=== PATIENT | female | born 1975 | race Caucasian/White ===

== ENCOUNTER 2025-06-13 05:31 | Emergency (ER) | payer MEDICAID, SELFPAY ==
[2025-06-13 05:31] VITALS: BMI 34.4
[2025-06-13 05:40] VITALS: BP 131/90; PULSE 92; RESP 17; TEMP 36.7; O2SAT 97
--- NOTE | 2025-06-13 06:44 | EDNOTE_ITS ---
<Statement entered by Nolvia Kan MD - 06/13/25 09:34> As co-signing physician, I was present and available for consult prn. I concur with the plan and care as documented by the midlevel provider. ED Ear RME/HPI General Chief complaint: Ear Stated complaint: SOMETHING IN RIGHT EAR Time Seen by Provider: 06/13/25 06:17 Arrival date/time: 06/13/25 05:31 49-year-old female presents to the emergency department today for complaints of foreign body in right ear patient believes she has a bug in her right ear since last night Limitations: no limitations Related Data Home Medications ?Medication ?Instructions ?Recorded ?Confirmed albuterol sulfate 90 mcg/actuation 2 puff inhalation Q 4H PRN Wheezing 05/22/21 05/24/21 aerosol inhaler atorvastatin 40 mg tablet 40 mg PO HS 05/22/21 1 buspirone 15 mg tablet 7.5 mg PO BID 05/22/2105/24 clopidogrel 75 mg tablet 75 mg PO HS 05/22/21 1 gabapentin 300 mg capsule 600 mg PO QPM 05/22/2105/24 metoprolol succinate 50 mg 50 mg PO HS 05/22/21 tablet,extended release 24 hr sertraline 50 mg tablet 50 mg PO HS 05/22/21 1 aspirin 81 mg tablet 81 mg PO HS 05/23/21 1 Previous Rx's ?Medication ?Instructions ?Recorded acetaminophen 500 mg capsule 500 mg PO QID PRN fever o r pain 02/28/23 #30 caps Allergies Allergy/AdvReac Type Severity Reaction Status Date / Time codeine AdvReac Intermediate HEADACHE Verified 05/24/21 15:13 Review of Systems Review of Systems Systems Reviewed: All systems reviewed, normal except as documented Constitutional Constitutional: Reports system reviewed and no additional complaints, except as documented, Denies fever(s) and Denies headache(s) Eyes Eyes: Reports system reviewed and no additional complaints, except as documented and Denies blurry vision ENT Ears, Nose, Mouth, and Throat: Reports system reviewed and no additional comp laints, except as documented, Denies headache(s), Denies nasal congestion, Denies nasal discharge and Reports other (Foreign body right ear) Cardiovascular Cardiovascular: Reports system reviewed and no additional complaints, except as documented, Denies chest pain and Denies dyspnea Respiratory Respiratory: Reports system reviewed and no additional complaints, except as documented, Denies chest congestion, Denies cough and Denies dyspnea Gastrointestinal Gastrointestinal: Reports system reviewed and no additional complaints, except as documented and Denies abdominal pain Integumentary/Breasts Skin/Breast: Reports system reviewed and no additional complaints, except as documented and Denies rash Neurologic Neurologic: Reports system reviewed and no additional complaints, except as documented, Reports as per HPI and Denies headache(s) Past Medical History Past Medical History NEUROLOGIC: Negative Neurological Disorders CARDIAC: Positive Cardiac Disorders, Myocardial Infarction, Cardiac Arrhythmia, Angina, Atherosclerotic Heart Disease, Hypercholesterolemia, Congestive Heart Failure, Cardiomyopathy and Hypertension; Negative Atrial Fibrillation or Congenital Heart Disease RESPIRATORY: Positive Asthma; Negative Chronic Obstructive Pulmonary Disease (COPD) GASTROINTESTINAL: Positive Gastrointestinal Disorders and Obesity GENITOURINARY: Negative Genitourinary Disorders or Renal Disease MUSCULOSKELETAL: Negative Musculoskeletal Disorders ENDOCRINE: Positive Endocrine Disorders and Diabetes Mellitus Type 2 (DIET CONTROLLED); Negative Diabetes Mellitus Type 1 HEMATOLOGIC: Negative Blood Disorders or Sickle Cell Disease PSYCHO/SOCIAL: Positive Depression and Anxiety OTHER HISTORY: Positive Cancer and Cervical Cancer; Negative Blood Transfusions Family History FAMILY HISTORY: Positive Family Cancer Surgical History SURGICAL: Positive Cardiac Surgery, Coronary Artery Bypass Graft, Valve Replacement and Hysterectomy; Negative Endocrine Surgery, Ear Surgery or Abdominal Surgery Social History SMOKING STATUS: Current every day smoker SUBSTANCE USE: former substance user (Methamphetamine abuse, clean since 1997) and marijuana (Current user) ED Exam General Limitations: Present no limitations General appearance: Present alert and in no apparent distress Head Head exam: Present atraumatic Eye Eye exam: Present normal appearance, PERRL and EOMI ENT ENT exam: Present mucous membranes moist Expanded ENT Exam Nasal speculum exam: Right: foreign body Neck Neck exam: Present normal inspection, full ROM and trachea midline Chest Chest inspection: Present normal inspection and symmetric chest wall rise Respiratory Respiratory exam: Present normal lung sounds bilaterally Cardiovascular Cardiovascular exam: Present regular rate, normal rhythm and normal heart sounds Abdominal Exam Abdominal exam: Present soft and normal bowel sounds Extremities Exam Extremities exam: Present normal inspection and full ROM Back Exam Back exam: Present normal inspection and full ROM Neurological Exam Neurological exam: Present alert, oriented X3 and CN II-XII intact Psychiatric Psychiatric exam: Present normal affect and normal mood Skin Skin exam: Present warm, dry, intact and normal color Course Quality Measures none Orders Category Date Time Status ED Ear Irrigation X1 Care 06/13/25 06:45 Active Vital Signs Vital signs: Vital Signs Temperature 98.1 F 06/13/25 05:40 Pulse Rate 92 06/13/25 05:40 Respiratory Rate 17 06/13/25 05:40 Blood Pressure 131/90 H 06/13/25 05:40 Pulse Oximetry (%) 97 06/13/25 05:40 Oxygen Delivery Method Room Air 06/13/25 05:40 O2 saturation 97% room air within normal limits PROCEDURES: FB Removal Ear Location: ear canal (R) Foreign Body Suspected: insect TM intact pre-procedure: yes If Insect Suspected: ear canal instilled with other Foreign Body Removed: yes Foreign Body Removal Technique: irrigation Tympanic Membrane Intact Post Procedure: Yes Patient Tolerated Procedure: well Complications: none Ear Patient data [facility] Clinical information provided by:: patient Social determinants that could affect healthcare access:: none Patient has the following chronic illnesses:: See history How is presenting disease/condition affected by chronic disease/condition?: uneffected by Evaluation data The following diagnostics were reviewed and interpreted by me:: other (specify) Lab and/or radiology exams considered but not ordered:: Considered not ordered Interpretation Summary: N/A Medications / Prescriptions Medications or Prescriptions considered but not ordered:: No meds Medication administrations:: Meds Consultations Consultation(s) initiated? (list below): No Diagnosis Ear Differential Diagnosis: foreign body in ear Most likely diagnosis given after review of the tests above:: Foreign body ear Admission Indicated Admission indicated?: not indicated Admission Request Was there a request for admission?: No Disposition Plan Disposition Plan: Discharge Discharge Attestation Discharge Attestation: The patient and all family members were given an opportunity to ask questions and understood the discharge instructions. Discharge instructions specifically effects, indications for sooner follow up or return to the emergency department, and the expected course of current diagnosis. Patient condition: Stable Medical Decision Making MDM Narrative MDM Narrative: 49-year-old female presents to the emergency department today for complaints of foreign body in right ear patient believes she has a bug in her right ear since last night On exam patient well-appearing patient does not appear look toxic no distress Right ear irrigated with sterile water Blood came out in its entirety TM intact Patient discharged home in no distress follow-up primary care doctor next 24 to 48 hours for worsening symptoms to return immediately Differential Diagnosis Differential Diagnosis: Foreign body right ear, otitis media, otitis externa Medical Records Medical records reviewed: Yes I reviewed the patient's medical records. Discharge Plan Plan Patient Disposition: HOME (Self Care) Discharge Disposition comment: Stable Prescriptions/Referrals Prescriptions/Med Rec: No Action atorvastatin 40 mg tablet 40 mg PO HS metoprolol succinate 50 mg tablet extended release 24 hr 50 mg PO HS clopidogrel 75 mg tablet 75 mg PO HS albuterol sulfate 90 mcg/actuation HFA aerosol inhaler 2 puff INHALATION Q4H PRN (Reason: Wheezing) sertraline 50 mg tablet 50 mg PO HS buspirone 15 mg tablet 7.5 mg PO BID gabapentin 300 mg capsule 600 mg PO QPM aspirin 81 mg Tablet 81 mg PO HS acetaminophen 500 mg capsule 500 mg PO QID PRN (Reason: fever or pain) Qty: 30 0RF Problem List Clinical Impression: Acute foreign body of right ear Patient/Caregiver Discharge Instructions Education Materials: ED EAR CANAL Foreign Body Additional Instructions: Please follow up with your primary care doctor in the next 24-48hrs for any worsening symptoms return here immediately Print Language: Setswana Stand Alone Forms: [facility]ba Award Info., Patient Portal Info Letter 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 kan
== END 2025-06-13 06:50 | disposition home or self-care (01) ==
LOC: SERX 07:00
PROVIDERS: Emergency Provider Emergency Medicine; PCP Physician Assistant Medical
DX: T16.1XXA Foreign body in right ear, initial encounter (principal); W44.9XXA Unspecified foreign body entering into or through a natural orifice, initial encounter
CPT/HCPCS: 69200; 99281